=== PATIENT | male | born 1990 | race Caucasian/White ===

== ENCOUNTER 2018-08-31 17:25 | Emergency (ER) | payer MEDICAID, OTHER ==
[2018-08-31] MEDS ORDERED: MIDAZOLAM 10 MG/2 ML VIAL IM ONE ×2 (17:29→19:35)
[2018-08-31] MEDS ORDERED: HALOPERIDOL LACT 5 MG/ML INJ IM ONE ×2 (17:29→19:46)
[2018-08-31] MEDS ORDERED: HALOPERIDOL LACT 5 MG/ML INJ ONE (17:30)
--- NOTE | 2018-08-31 17:34 | EDPHY ---
H & P Time Seen by Provider: 08/31/18 17:29 HPI/ROS: HPI Altered mental status. 26-year-old male in restraints, by EMS some with police. Patient picked up by police running in and out of traffic. Almost hit by several cars according to police. Acting bizarrely. Will not give his name or any other information. History of methamphetamine abuse according to police but no other information known and no other history obtainable at this time. The patient is in 4 point restraints. ROS: Unable to obtain. Past medical history: Unable to obtain. Social history: As above. Physical Exam: General Appearance: Alert, mumbling nonsensically, agitated. This patient appears generally well-hydrated and well-nourished. Eyes: Pupils equal and round and reactive to light at 4-2 mm bilaterally, no pallor or injection. No lid edema, erythema or injection. Head: Normocephalic atraumatic. ENT, Mouth: Mucous membranes are moist. The pharyngeal tissues are unremarkable. No edema or swelling. No asymmetry suggestive of abscess. No erythema or exudates. No tongue lacerations or abrasions. Respiratory: There are no retractions, lungs are clear to auscultation with good air movement bilaterally. Cardiovascular: Regular rate and rhythm. Tachycardia. No murmur. Gastrointestinal: Abdomen is soft and nontender, no masses, bowel sounds normal. No focal tenderness at McBurney's point. No Darnell sign. Neurological: Motor sensory function is grossly intact. Cranial nerves are normal. Gait is normal. Skin: Warm and dry, he has red papules all over his upper extremities likely secondary to skin popping. Musculoskeletal: Neck is supple and nontender. Extremities are symmetrical. All joints range without pain or impingement. Psychiatric: No agitation. No depression. Database: EKG: Imaging: Procedures: Emergency department course: Secondary to his agitation and danger to self as well as staff, the patient was given 2 mg of intramuscular Versed and 10 mg of intramuscular Haldol so shortly after my evaluation. 5:50 p.m., the patient remains severely agitated despite above medications. He is trying to tear out of his restraints. He will be given intramuscular ketamine, 400 mg for additional sedation. 6:00 p.m., patient now sleeping comfortably from original sedation as above, Haldol and Versed. Ketamine has not been given and will be held for the time being. 6:15 p.m., the patient was re-evaluated, he is sleeping comfortably at this time. Vital signs reviewed and are normal. Plan is to allow him to metabolize and then reassess when appropriately sober. 7:40 p.m., the patient became agitated again. He was given another 10 mg of Haldol and 2 mg of Versed intramuscular. 8:40 p.m., patient re-evaluated. Resting comfortably at this time. Pulse oximetry is 96% on room air. Heart rate 82. 9:20 p.m., the patient was placed in soft restraints. He continues to rest comfortably. IV was established. He was started on IV normal saline with 1-2 L to be given over the next several hours. 11:00 p.m., the patient's care was turned over to Dr. Sharif Roman. Plan at this time is to allow him to metabolize and then reassess for disposition. 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 Differential Diagnosis: The differential diagnosis on this patient includes but is not limited to methamphetamine, PCP or other street drug induced psychosis. This represents a partial list of diagnoses considered. These considerations are based on history , physical exam, past history, reassessment and diagnostic testing. (Carmen Marion) Constitutional: Initial Vital Signs Heart Rate 120 H 08/31/18 17:25 Respiratory Rate 20 08/31/18 17:25 Blood Pressure 144/111 H 08/31/18 17:25 O2 Delivery Mode Room Air Allergies/Adverse Reactions: Unable to Assess Allergy (Unverified 08/31/18 17:41) Home Medications: Medication Instructions Recorded Unobtainable 08/31/18 Medical Decision Making ED Course/Re-evaluation: 0613AM: Patient was signed over to me at 11:00 p.m. Shift change. Patient has been sleeping most of the evening. I did go re-evaluate him at this time is resting comfortably. At this time he has no complaints however states he is sleepy. He did receive Zyprexa last night. Plan for further observation and clearance of his medications and re-evaluation. Signed over at 6:[address] Aguilar. Pending re-eval. If no longer psychotic, and acting appropriately I believe he can be safely discharged. (Sharif Roman) Other Provider: Chart reviewed, care assumed at 7:00 a.m. Temperature documented this morning is 36.5, multiple oxygen saturation readings in the mid 90s. 759: Patient personally evaluated at this time. He is not psychotic. He is able to answer questions appropriately and has no medical complaints. On examination he is cooperative and has multiple red papules which the patient says is from chronic staph skin infection. He does not have lymphangitis or fever or evidence of acute cellulitis. Ambulatory, not ataxic, clear sensorium. Oriented to place, able to tell me where he grew up, that he is living in his vehicle a [employer]. He does not meet criteria for involuntary psychiatric commitment or a detainer at this time, and is stable for discharge at this time, which is what the patient would like, and I think is reasonable. (Jake Aguilar) - Data Points Medications Given: Discontinued Medications Haloperidol Lactate (Haldol Injection) 10 mg IM EDNOW ONE Stop: 08/31/18 17:30 Last Admin: 08/31/18 17:40 Dose: 10 mg Haloperidol Lactate (Haldol Injection) 10 mg IM ONCE ONE Stop: 08/31/18 19:47 Last Admin: 08/31/18 19:48 Dose: 10 mg Sodium Chloride (Ns) 1,000 mls @ 0 mls/hr IV EDNOW ONE; Wide Open PRN Reason: Protocol Stop: 08/31/18 21:29 Last Admin: 08/31/18 21:29 Dose: 1,000 mls Sodium Chloride (Ns) 1,000 mls @ 150 mls/hr IV ONCE ONE PRN Reason: Protocol Stop: 09/01/18 04:10 Last Admin: 08/31/18 21:31 Dose: 1,000 mls Ketamine HCl (Ketamine) 400 mg IM EDNOW ONE Stop: 08/31/18 17:49 Last Admin: 08/31/18 19:01 Dose: Not Given Midazolam HCl (Versed) 2 mg IM EDNOW ONE Stop: 08/31/18 17:30 Last Admin: 08/31/18 17:40 Dose: 2 mg Midazolam HCl (Versed) 2 mg IM EDNOW ONE Stop: 08/31/18 19:36 Last Admin: 08/31/18 19:48 Dose: 2 mg Olanzapine (Zyprexa Injection) 10 mg IM EDNOW ONE Stop: 08/31/18 23:38 Last Admin: 08/31/18 23:49 Dose: 10 mg Departure - Departure Disposition: Home, Routine, Self-Care Clinical Impression: Drug-induced psychotic disorder Qualifiers: Complication of substance-induced condition: with unspecified complication Qualified Code(s): F19.959 - Other psychoactive substance use, unspecified with psychoactive substance-induced psychotic disorder, unspecified Condition: Good Instructions: Methamphetamine Abuse (ED) Referrals: [facility],. [Clinic] - As per Instructions
[2018-08-31] MEDS ORDERED: KETAMINE 500 MG/10 ML VIAL ONE (17:48)
[2018-08-31] MEDS ORDERED: KETAMINE 500 MG/10 ML VIAL IM ONE (17:48)
[2018-08-31] MEDS ORDERED: LORazepam 2 MG/ML INJ ONE (19:25)
[2018-08-31] MEDS ORDERED: MIDAZOLAM 2 MG/2 ML VIAL ONE (19:40)
[2018-08-31] MEDS ORDERED: NS 1,000 ML IV ONE ×2 (21:28→21:31)
[2018-08-31] MEDS ORDERED: OLANZapine 10 MG/2 ML VIAL IM ONE (23:37)
[2018-09-01 08:20] VITALS: BP 106/58
== END 2018-09-01 08:14 | disposition home or self-care (01) ==
LOC: EDBD 17:25
DX: F19.959 Other psychoactive substance use, unspecified with psychoactive substance-induced psychotic disorder, unspecified (principal)
CPT/HCPCS: J1630; J2060; J2250